=== PATIENT | female | born 1940 | race Caucasian/White ===

== ENCOUNTER 2025-01-24 17:57 | Emergency (ER) | payer MEDICARE ==
[2025-01-24] MEDS ORDERED: Sodium Chloride 0.9% 10 ML Syringe FLUSH PRN (18:08)
[2025-01-24 18:26] LABS: BASOPHILS ABSOLUTE AUTO 0.02 K/uL (0.00-0.20); BASOPHILS PERCENT AUTO 0.4 % (0.0-2.0); EOSINOPHILS ABSOLUTE AUTO 0.11 K/uL (0.00-0.50); EOSINOPHILS PERCENT AUTO 2.0 % (0.0-5.0); IMMATURE GRAN ABSOLUTE AUTO 0.04 10^3/uL (0.00-0.04); IMMATURE GRAN PERCENT AUTO 0.7 % (0.0-0.4); LYMPHOCYTES ABSOLUTE AUTO 1.15 K/uL (0.50-3.50); LYMPHOCYTES PERCENT AUTO 21.1 % (10.0-50.0); MONOCYTES ABSOLUTE AUTO 0.33 K/uL (0.00-1.00); MONOCYTES PERCENT AUTO 6.1 % (2.0-14.0); NEUTROPHILS ABSOLUTE AUTO 3.80 K/uL (1.40-7.00); NEUTROPHILS PERCENT AUTO 69.7 % (45.0-80.0); PLATELET COUNT,PLT 168 K/uL (150-350); RED BLOOD CELL COUNT 3.87 M/uL (3.77-5.09); RED CELL DISTRIBUTION WIDTH 12.9 % (11.2-14.1); WHITE BLOOD CELL COUNT,WBC 5.5 K/uL (4.0-10.2)
[2025-01-24 18:51] LABS: ALANINE AMINOTRANSFERASE,ALT 39 U/L (12-78); ASPARTATE AMNIOTRANSFERASE,AST 26 U/L (15-37); BILIRUBIN TOTAL 0.2 mg/dL (0.2-1.0); BLOOD UREA NITROGEN,BUN 14 mg/dL (7-18); CARBON DIOXIDE,CO2 26.4 mmol/L (21.0-32.0); CHLORIDE,CL 104 mmol/L (98-107); CREATININE 1.10 mg/dL (0.51-1.17); GLUCOSE RANDOM 193 mg/dL (70-99); POTASSIUM,K 3.8 mmol/L (3.5-5.1); PROTEIN TOTAL,TP 7.2 g/dL (6.4-8.2); SODIUM,NA 142 mmol/L (136-145)
[2025-01-24 19:02] LABS: ESTIMATED GFR 50 mL/min (>=60)
[2025-01-24] MEDS: Lactated Ringers 1,000 ML IV SCH (20:17)
[2025-01-24] MEDS: Take Home: Acetaminophen/HYDROcodone 325-10 MG, 5 Tab Pack PO ONE (20:57)
[2025-01-24 22:14] VITALS: BP 126/65; PULSE 70
== END 2025-01-24 22:11 | disposition home or self-care (01) ==
LOC: LL.ED 17:57
DX: S22.31XA Fracture of one rib, right side, initial encounter for closed fracture (principal); S01.111A Laceration without foreign body of right eyelid and periocular area, initial encounter; S01.81XA Laceration without foreign body of other part of head, initial encounter; S70.12XA Contusion of left thigh, initial encounter; Z88.1 Allergy status to other antibiotic agents; Z91.048 Other nonmedicinal substance allergy status; Z91.09 Other allergy status, other than to drugs and biological substances; Z79.82 Long term (current) use of aspirin; W10.9XXA Fall (on) (from) unspecified stairs and steps, initial encounter
CPT/HCPCS: 12013; 36415; 70450; 71101-RT; 72100; 72170; 80053; 82947; 85025; 99283; 99284; A9270-GY; J2003; J7120